=== PATIENT | female | born 1950 | race Caucasian/White ===

== ENCOUNTER 2016-11-20 22:41 | Emergency (ER) | payer OTHER ==
[~2016-11-20] VITALS: Ht 157.5 cm; Wt 49.4 kg
[~2016-11-20 22:41] MED LIST: ASPIR 8181 M1 PO; ATARAX,VISTARIL50 MG PO; BENADRYL25 MG PO; BENADRYL50 MG PO; BISAC-EVAC10 MG PR; CALCIUM 600 +1 EAC4 PO; CALCIUM600 MG PO; CEFTRIAXONE2 G1 IV; CELEXA20 MG PO; CENTRUM SILV1 TABLET PO; CITALOPRAM HBR20 MG PO; COGENTIN1 MG PO; COUMADIN1 MG PO; COUMADIN4 MG PO; DITROPAN5 MG PO; ENDOCET 5-3251 EACH PO; HAIR SKIN NAIL1 EACH PO; HALDOL2 MG PO; HALOPERIDOL2 MG PO; HYDROXYZINE HCL50 MG PO; IRON325 M1 PO; METFORMIN HCL500 MG PO; METHOCARBAMOL500 MG PO; MIRALAX17 GM PO; MULTI COMPLETE1 EACH PO; OCUVITE1 TABLET PO; OXYCODONE HCL5 MG PO; SENNA-TIME S T1 EACH PO; TRAZODONE HCL50 MG PO; TRILEPTAL150 MG PO; TRILEPTAL300 MG PO; TYLENOL REGULA325 MG PO; VITAMIN D400 UNI1 PO
[2016-11-21] MEDS ORDERED: NAPROXEN500 MG PO (01:47)
[2016-11-21 02:00] VITALS: BP 141/81
== END 2016-11-21 02:00 | disposition home or self-care (01) ==
LOC: EME → EDBD 22:41 → EME 11-21 02:00
PROC: 0HQ1XZZ Repair Face Skin, External Approach (ICD-10-PCS; principal; 2016-11-21)
DX: S01.111A Laceration without foreign body of right eyelid and periocular area, initial encounter (principal); S01.81XA Laceration without foreign body of other part of head, initial encounter; W01.0XXA Fall on same level from slipping, tripping and stumbling without subsequent striking against object, initial encounter; Y92.480 Sidewalk as the place of occurrence of the external cause
CPT/HCPCS: 70450; 70480; 72125; 99281; 99284

== ENCOUNTER 2016-11-27 12:08 | Emergency (ER) | payer SELFPAY ==
[~2016-11-27] VITALS: Ht 157.5 cm; Wt 48.0 kg
[~2016-11-27 12:08] MED LIST changes: +NAPROXEN500 MG PO
[2016-11-27 18:10] VITALS: BP 115/62
== END 2016-11-27 18:12 | disposition home or self-care (01) ==
LOC: EME 12:08
DX: I62.9 Nontraumatic intracranial hemorrhage, unspecified (principal); S01.111D Laceration without foreign body of right eyelid and periocular area, subsequent encounter; W01.0XXD Fall on same level from slipping, tripping and stumbling without subsequent striking against object, subsequent encounter; Z48.02 Encounter for removal of sutures
CPT/HCPCS: 70450; 93005; 99281; 99284

== ENCOUNTER → 2017-03-11 | Outpatient (CLI) | payer OTHER | END | disposition home or self-care (01) | LOC: RAD 10:00 | DX: R10.2 Pelvic and perineal pain (principal) | CPT/HCPCS: 76856 ==

== ENCOUNTER 2017-05-26 11:37 | Inpatient (IN) | payer OTHER ==
[~2017-05-26] VITALS: Ht 157.5 cm; Wt 56.0 kg
[~2017-05-26 11:37] MED LIST changes: +CELEXA40 MG PO; -CITALOPRAM HBR20 MG PO; +COGENTIN2 MG PO
[2017-05-26 12:35] LABS: HEMATOCRIT 32.1 % (36.0-46.0); MCH 30.4 PG (29.0-34.0); MCHC 34.6 G/DL (30.0-36.0); MCV 87.9 FL (83-99); MEAN PLAT.VOLUME 10.2 uM^3 (9.5-12.4); PLATELET COUNT 101 K/uL (156-360); RBC DIS.WIDTH-CV 12.9 % (11.8-14.6); RED BLOOD COUNT 3.65 M/uL (3.80-5.20); WHITE BLOOD COUNT 3.2 K/uL (4.1-10.2)
[2017-05-26 12:43] LABS: CHLORIDE 92 mEq/L (99-109); POTASSIUM 4.7 mEq/L (3.7-5.4); SODIUM 131 mEq/L (136-147)
[2017-05-26 12:45] LABS: GLUCOSE 69 mg/dL (70-99)
[2017-05-26 12:46] LABS: ANION GAP 9 MEQ/L (2-14)
[2017-05-26 12:49] LABS: GFR ESTIMATE (CALCULATED) > 59 mL/min/
[2017-05-26 12:50] LABS: UREA NITROGEN (BUN) 20 mg/dL (9-23)
[2017-05-26 14:19] LABS: ADD MIUA? YES; BILIRUBIN NEGATIVE; BLOOD SMALL; COLOR YELLOW ((YELLOW)); GLUCOSE (STRIP) NEGATIVE; KETONES NEGATIVE; LEUKOCYTES MODERATE; NITRITE POSITIVE; PROTEIN (STRIP) 30; SPECIFIC GRAVITY 1.011 (1.000-1.030); UROBILINOGEN 0.2 MG/DL (0.2-1.0)
[2017-05-26 14:25] LABS: BACTERIA 1+ /HPF; EPITHELIAL CELLS RARE /HPF; MUCUS NONE SEEN /LPF; RED BLOOD CELLS 0-5 /HPF (0-5); UCUL ADDED? YES; WHITE BLOOD CELLS 15-20 /HPF (0-5)
[2017-05-26 17:54] VITALS: BP 146/65
[2017-05-26 20:23] VITALS: BP 149/68
[2017-05-26 23:48] VITALS: BP 115/58
[2017-05-27 04:21] VITALS: BP 95/50
[2017-05-27 05:25] LABS: HEMATOCRIT 26.9 % (36.0-46.0); MCH 31.8 PG (29.0-34.0); MCHC 35.7 G/DL (30.0-36.0); MCV 89.1 FL (83-99); PLATELET COUNT 85 K/uL (156-360); RBC DIS.WIDTH-CV 13.4 % (11.8-14.6); RBC DIS.WIDTH-SD 43.8 % (39-53); RED BLOOD COUNT 3.02 M/uL (3.80-5.20)
[2017-05-27 06:19] LABS: ANION GAP 5 MEQ/L (2-14); CHLORIDE 98 MEQ/L (99-109); GFR ESTIMATE (CALCULATED) > 59 mL/min/; POTASSIUM 4.6 MEQ/L (3.7-5.4); SAMPLE HEMOLYSIS CHECK 0; SAMPLE ICTERIC CHECK 0; SAMPLE LIPEMIA CHECK 0; SODIUM 132 MEQ/L (136-147); UREA NITROGEN (BUN) 19 mg/dL (9-23)
[2017-05-27 06:54] LABS: GLUCOSE 33 mg/dL (70-99)
[2017-05-27 07:54] VITALS: BP 125/59
[2017-05-27 09:52] LABS: POINT-OF-CARE METER ID UU13113700
[2017-05-27 11:04] VITALS: BP 128/76
[2017-05-27 12:27] VITALS: BP 119/59
[2017-05-27 15:30] VITALS: BP 117/56
[2017-05-27] MEDS ORDERED: VITAMIN D35000 UNI2 PO (15:46)
[2017-05-27] MEDS ORDERED: CENTRUM SILVER1 EAC4 PO (15:48)
[2017-05-27] MEDS ORDERED: VITAMIN D2000 UNIT PO (15:56)
[2017-05-27] MEDS ORDERED: I-CAPS WITH LU1 EACH PO (15:59)
[2017-05-27] MEDS ORDERED: MIRAPEX ER0.375 MG PO (15:59)
[2017-05-27 19:34] LABS: EOSINOPHIL (%) 0 % (0-5); HEMATOCRIT 28.7 % (36.0-46.0); IMMATURE GRANULOCYTE (%) 0.5 % (0.0-0.7); INSTRUMENT ABS NEUTROPHIL CT 3.2 K/uL; LYMPHOCYTE COUNT 0.6 K/uL (1.0-2.8); MCH 31.4 PG (29.0-34.0); MCHC 35.5 G/DL (30.0-36.0); MCV 88.3 FL (83-99); MEAN PLAT.VOLUME 9.8 uM^3 (9.5-12.4); MONOCYTE (%) 6.7 % (3-12); MONOCYTE COUNT 0.3 K/uL (0-0.8); NEUTROPHIL (%) 77.9 % (45-76); NEUTROPHIL COUNT 3.2 K/uL (1.8-6.4); PLATELET COUNT 98 K/uL (156-360); RBC DIS.WIDTH-CV 13.6 % (11.8-14.6); RBC DIS.WIDTH-SD 43.3 % (39-53); RED BLOOD COUNT 3.25 M/uL (3.80-5.20); WHITE BLOOD COUNT 4.2 K/uL (4.1-10.2)
[2017-05-27 19:41] LABS: POINT-OF-CARE METER ID UU13113700
[2017-05-27 19:44] LABS: INTER. NORMALIZED RATIO 1.1; PROTHROMBIN TIME 11.9 SEC (10.2-12.9)
[2017-05-27 19:51] LABS: CARBON DIOXIDE (BICARBONATE) 33.4 MEQ/L (20-31)
[2017-05-27 19:59] LABS: ALKALINE PHOSPHATASE 80 IU/L (3-129); ANION GAP 6 MEQ/L (2-14); CHLORIDE 98 MEQ/L (99-109); GFR ESTIMATE (CALCULATED) > 59 mL/min/; POTASSIUM 4.2 MEQ/L (3.7-5.4); SAMPLE HEMOLYSIS CHECK 0; SAMPLE ICTERIC CHECK 0; SAMPLE LIPEMIA CHECK 0; SODIUM 134 MEQ/L (136-147); TOTAL BILIRUBIN 0.4 MG/DL (0.0-1.0); UREA NITROGEN (BUN) 17 mg/dL (9-23)
[2017-05-27 20:00] LABS: GLUCOSE 72 mg/dL (70-99)
[2017-05-27 20:40] LABS: Estimated Average Glucose 117 mg/dL (70-123); HEMOGLOBIN A1c (GLYCOHEMOGLOB) 5.7 % HGB (Below 5.7)
[2017-05-27 21:03] LABS: ERTH.SED.RATE 14 MM/HR (0-30)
[2017-05-27 22:17] LABS: POINT-OF-CARE METER ID UU13113700
[2017-05-27 22:45] VITALS: BP 131/60
[2017-05-28] VITALS (7 sets, daily range): BP systolic 101–149; BP diastolic 50–66
[2017-05-28 00:10] LABS: POINT-OF-CARE METER ID UU13113698
[2017-05-28 02:15] LABS: POINT-OF-CARE METER ID UU13113781
[2017-05-28 04:14] LABS: POINT-OF-CARE METER ID UU13113781
[2017-05-28 05:33] LABS: HEMATOCRIT 28.3 % (36.0-46.0); MCH 30.2 PG (29.0-34.0); MCV 86.3 FL (83-99); MEAN PLAT.VOLUME 10.2 uM^3 (9.5-12.4); PLATELET COUNT 104 K/uL (156-360); RBC DIS.WIDTH-CV 13.3 % (11.8-14.6); RBC DIS.WIDTH-SD 41.9 % (39-53); RED BLOOD COUNT 3.28 M/uL (3.80-5.20)
[2017-05-28 07:55] LABS: ANION GAP 10 MEQ/L (2-14); CHLORIDE 103 MEQ/L (99-109); CREATINE KINASE 177 IU/L (1-294); GFR ESTIMATE (CALCULATED) > 59 mL/min/; GLUCOSE 76 mg/dL (70-99); SAMPLE HEMOLYSIS CHECK 0; SAMPLE ICTERIC CHECK 0; SAMPLE LIPEMIA CHECK 0; SODIUM 136 MEQ/L (136-147); UREA NITROGEN (BUN) 16 mg/dL (9-23)
[2017-05-28 07:56] LABS: POTASSIUM 3.2 MEQ/L (3.7-5.4)
[2017-05-28 08:24] LABS: POINT-OF-CARE METER ID UU13113781; POINT-OF-CARE USER ID NUTSLF44
[2017-05-28 10:22] LABS: POINT-OF-CARE METER ID UU13113781; POINT-OF-CARE USER ID NUTSLF44
[2017-05-28 17:21] LABS: POINT-OF-CARE METER ID UU13113781; POINT-OF-CARE USER ID NUTSLF44
[2017-05-29 04:08] VITALS: BP 135/62
[2017-05-29 06:12] LABS: POINT-OF-CARE METER ID UU14188577
[2017-05-29 06:52] LABS: HEMATOCRIT 25.1 % (36.0-46.0); MCH 31.6 PG (29.0-34.0); MCHC 34.7 G/DL (30.0-36.0); MEAN PLAT.VOLUME 10.3 uM^3 (9.5-12.4); PLATELET COUNT 73 K/uL (156-360); RBC DIS.WIDTH-CV 14.5 % (11.8-14.6); RBC DIS.WIDTH-SD 47.6 % (39-53); RED BLOOD COUNT 2.75 M/uL (3.80-5.20); WHITE BLOOD COUNT 4.2 K/uL (4.1-10.2)
[2017-05-29 06:53] LABS: MCV 91.3 FL (83-99)
[2017-05-29 07:41] VITALS: BP 139/63
[2017-05-29 07:59] LABS: ANION GAP 5 MEQ/L (2-14); CHLORIDE 107 MEQ/L (99-109); GFR ESTIMATE (CALCULATED) > 59 mL/min/; POTASSIUM 3.6 MEQ/L (3.7-5.4); SAMPLE HEMOLYSIS CHECK 0; SAMPLE ICTERIC CHECK 0; SAMPLE LIPEMIA CHECK 0; SODIUM 138 MEQ/L (136-147); UREA NITROGEN (BUN) 16 mg/dL (9-23)
[2017-05-29 08:01] LABS: GLUCOSE 107 mg/dL (70-99)
[2017-05-29 11:28] VITALS: BP 112/53
[2017-05-29 12:02] LABS: POINT-OF-CARE METER ID UU14188577
[2017-05-29 16:59] VITALS: BP 127/63
[2017-05-29 19:55] VITALS: BP 112/56
[2017-05-29 23:40] VITALS: BP 121/60
[2017-05-30 04:23] VITALS: BP 125/60
[2017-05-30 08:08] VITALS: BP 116/56
[2017-05-30 10:37] VITALS: BP 121/60
[2017-05-30] MEDS ORDERED: CIPRO500 MG PO (12:01)
[2017-05-30] MEDS ORDERED: ACIDOPHILUS LA1 EAC1 PO (12:01)
[2017-05-30 15:14] VITALS: BP 151/63
== END 2017-05-30 15:28 | disposition home health service (06) | DRG 689 ==
LOC: EME 11:37 → EDOF 15:20 → 5WEST 15:20 → EDOF 15:20 → ENRESERV 15:27 → 5WEST 17:43 → 3EAST 05-27 19:55 → 5WEST 05-27 19:55 → 4EAST 05-27 19:55 → 5WEST 05-27 19:55 → ENRESERV 05-27 20:09 → 4EAST 05-27 22:38 → 3EAST 05-28 17:01 → ENRESERV 05-28 17:03 → 4EAST 05-28 17:24 → ENRESERV 05-28 17:27 → 3EAST 05-28 18:09 → ENPENDDIS 05-30 → 3EAST 05-30 15:28
PROVIDERS: Family Medicine; Hospitalist; Internal Medicine; Physician Assistant Medical
DX: N39.0 Urinary tract infection, site not specified (principal); G93.41 Metabolic encephalopathy; G93.49 Other encephalopathy; F05 Delirium due to known physiological condition; D61.818 Other pancytopenia; E87.1 Hypo-osmolality and hyponatremia; E87.3 Alkalosis; B96.5 Pseudomonas (aeruginosa) (mallei) (pseudomallei) as the cause of diseases classified elsewhere; L97.519 Non-pressure chronic ulcer of other part of right foot with unspecified severity; E11.621 Type 2 diabetes mellitus with foot ulcer; E11.649 Type 2 diabetes mellitus with hypoglycemia without coma; F94.0 Selective mutism; E86.0 Dehydration; R13.10 Dysphagia, unspecified; F03.90 Unspecified dementia, unspecified severity, without behavioral disturbance, psychotic disturbance, mood disturbance, and anxiety; F31.9 Bipolar disorder, unspecified; Z87.440 Personal history of urinary (tract) infections; Z90.49 Acquired absence of other specified parts of digestive tract; Z96.651 Presence of right artificial knee joint; Z96.641 Presence of right artificial hip joint
CPT/HCPCS: 70450; 70551; 71020; 72141; 80048; 80053; 81003; 82272; 82533 91; 82550; 82803; 82948; 83036; 83605; 84439; 84443; 84681 90; 85025; 85027; 85610; 85651; 87040; 87077; 87086; 87186; 92526 GN; 92610 GN; 93005; 95819; 97530 GP; 99281; 99285; G0378; J0515; J0692; J0696; J1644; J2060; J7030; J7042; J7050